=== PATIENT | female | born 1955 | race Hispanic/Latino ===

== ENCOUNTER 2023-06-10 11:40 | Observation (INO) | payer OTHER ==
[2023-06-08 14:22] VITALS: BP 202/72; PULSE 60; RESP 17
[2023-06-08 14:22] LABS: BASOPHILS # (AUTO) 0.01 K/uL (0.00-0.20); BASOPHILS % (AUTO) 0.1 % (0.0-5.0); EOSINOPHILS # (AUTO) 0.17 K/uL (0.00-0.70); EOSINOPHILS % (AUTO) 2.3 % (0.0-8.0); HEMATOCRIT 34.7 % (36-48); IMMATURE GRANULOCYTE ABSOLUTE 0.03 K/uL (0-1); LYMPHOCYTES # (AUTO) 2.3 K/uL (1.0-4.8); LYMPHOCYTES % (AUTO) 31.1 % (21.0-51.0); MEAN CORPUSCULAR HEMOGLOBIN 28.1 pg (27.0-33.0); MEAN CORPUSCULAR HGB CONC 32.3 g/dL (32.0-36.0); MONOCYTES # (AUTO) 0.4 K/uL (0.1-1.0); MONOCYTES % (AUTO) 5.9 % (3.0-13.0); NEUTROPHILS # (AUTO) 4.5 K/uL (1.8-7.7); NEUTROPHILS % (AUTO) 60.2 % (40.0-77.0); PLATELET COUNT (AUTO) 294 K/uL (130-400); RED BLOOD CELL COUNT(AUTO) 3.99 MIL/uL (4.00-5.50); RED CELL DISTRIBUTION WIDTH 14.1 % (11.0-15.5); WHITE BLOOD COUNT (AUTO) 7.5 K/uL (4.8-10.8)
[2023-06-08 14:25] LABS: APPEARANCE,URINE CLEAR (CLEAR); BILIRUBIN,URINE NEGATIVE (NEGATIVE); COLOR,URINE COLORLESS (YELLOW); GLUCOSE, URINE (UA) NEGATIVE (NEGATIVE); KETONES,URINE NEGATIVE (NEGATIVE); LEUKOCYTE ESTERASE ,URINE 25 Leu/uL (NEGATIVE); NITRATE,URINE NEGATIVE (NEGATIVE); OCCULT BLOOD,URINE NEGATIVE (NEGATIVE); PH,URINE 5.5 (5.0-8.0); PROTEIN,URINE NEGATIVE (NEGATIVE); UROBILINOGEN,URINE 0.2 mg/dL (0.2-1.0)
[2023-06-08 14:32] LABS: ADD UA MICROSCOPIC YES
[2023-06-08 14:40] LABS: RBC,URINE 0-1 /HPF (0-1); SQUAMOUS EPITHELIAL CELL,UR RARE /HPF (0-2)
[2023-06-08 14:41] LABS: INR 0.99 (0.85-1.15); PROTHROMBIN TIME 11.5 SEC (9.6-11.6)
[2023-06-08 14:43] LABS: PARTIAL THROMBOPLASTIN TIME 27.3 SEC (26.3-35.5)
[2023-06-08 14:48] LABS: CREATININE 0.8 mg/dL (0.5-1.5)
[2023-06-08 15:04] LABS: B-TYPE NATRIURETIC PEPTIDE 83 pg/mL (0-100)
[2023-06-10] VITALS (7 sets, daily range): BP systolic 119–179; BP diastolic 45–64; PULSE 58–62; RESP 12–18; O2SAT 99
[~2023-06-10] VITALS: Ht 165.1 cm; Wt 101.6 kg
[~2023-06-10 11:40] MED LIST: AEC81 PO; AMLO2.5T4 PO; CHOL400C9 PO; HYDR12.54 PO; ICOS1CAP PO; LEVO88CA4 PO; LOSA25TA41 PO; METF-444 PO; METO25TA6 PO; NITR0.4T50 SL; ROSU20TA73 PO
[2023-06-10] MEDS ORDERED: 0.9%NACL 1000ML 1,000 ML IV ONE (14:03)
[2023-06-10] MEDS ORDERED: AEC81 PO (14:18)
[2023-06-10] MEDS ORDERED: LIDOCAINE HCL 1% 20 ML VIAL ONE (16:12)
[2023-06-10] MEDS ORDERED: FENTANYL CITRATE PF 50 MCG/1 ML 2ML VIAL ONE (16:12)
[2023-06-10] MEDS ORDERED: HEPARIN 10,000 UNIT/10ML (1,000 UNIT/ML) VIAL ONE (16:13)
[2023-06-10] MEDS ORDERED: MIDAZOLAM HCL 1 MG/ML 2ML VIAL ONE (16:13)
[2023-06-10] MEDS ORDERED: IOHEXOL 350 MG/ML 100ML INFUS..BTL IV ONE ×2 (16:13→18:28)
[2023-06-10] MEDS ORDERED: LABETALOL 20MG SYG IV ONE ×2 (18:08→18:51)
[2023-06-10] MEDS ORDERED: TICAGRELOR 90 MG TABLET ONE (18:43)
[2023-06-10] MEDS ORDERED: ASPIRIN 325MG EC TAB PO ONE (18:43)
[2023-06-10] MEDS ORDERED: TICA90TA PO (19:09)
[2023-06-10] MEDS ORDERED: CHOL400C9 PO (19:09)
[2023-06-10] MEDS ORDERED: ICOS1CAP PO (19:09)
[2023-06-10] MEDS ORDERED: NITROGLYCERIN 0.4 MG SL TAB SL PRN (19:30)
[2023-06-10] MEDS ORDERED: 0.9%NACL 1000ML 1,000 ML IV SCH (19:30)
[2023-06-10] MEDS: TICAGRELOR 90 MG TABLET PO SCH (21:00)
[2023-06-10] MEDS: ICOSAPENT ETHYL 2 GM PO SCH (21:00)
[2023-06-10] MEDS ORDERED: ATORVASTATIN 40 MG TABLET PO SCH (21:00)
[2023-06-10] MEDS: METOPROLOL TARTRATE 25 MG TAB PO SCH (21:37)
[2023-06-11 03:28] VITALS: BP 139/67; PULSE 58; RESP 18
[2023-06-11 04:08] LABS: HEMATOCRIT 30.9 % (36-48); MEAN CORPUSCULAR HEMOGLOBIN 27.7 pg (27.0-33.0); MEAN CORPUSCULAR VOLUME 86.3 fL (79-99); RED BLOOD CELL COUNT(AUTO) 3.58 MIL/uL (4.00-5.50); RED CELL DISTRIBUTION WIDTH 14.2 % (11.0-15.5); WHITE BLOOD COUNT (AUTO) 7.5 K/uL (4.8-10.8)
[2023-06-11 04:25] LABS: CREATININE 0.7 mg/dL (0.5-1.5); POTASSIUM 3.9 mmol/L (3.5-5.1)
[2023-06-11] MEDS ORDERED: LEVOTHYROXINE 88 MCG TABLET PO SCH (06:30)
[2023-06-11 08:00] VITALS: O2SAT 98
[2023-06-11 08:15] VITALS: BP 134/56; PULSE 56; RESP 16
[2023-06-11] MEDS: METOPROLOL TARTRATE 25 MG TAB PO SCH (09:00)
[2023-06-11] MEDS ORDERED: LOSARTAN 25 MG TABLET PO SCH (09:00)
[2023-06-11] MEDS ORDERED: CHOLECALCIFEROL 10 MCG PO SCH (09:00)
[2023-06-11] MEDS ORDERED: AMLODIPINE 2.5 MG TAB PO SCH (09:00)
[2023-06-11] MEDS ORDERED: HYDROCHLOROTHIAZIDE 25 MG TABLET PO SCH (09:00)
[2023-06-11] MEDS ORDERED: ASPIRIN 81MG CHEW TAB PO SCH (09:00)
[2023-06-11] MEDS: TICAGRELOR 90 MG TABLET PO SCH (10:12)
[2023-06-11] MEDS: ICOSAPENT ETHYL 2 GM PO SCH (10:24)
[2023-06-12] MEDS ORDERED: ASPIRIN 81 MG EC TAB PO SCH (09:00)
== END 2023-06-11 12:03 | disposition home or self-care (01) ==
LOC: DAH 11:40 → DAHIP 11:41 → 2AH 21:14
PROVIDERS: ADMIT Internal Medicine Cardiovascular Disease; ATTEND Internal Medicine Cardiovascular Disease
DX: I20.9 Angina pectoris, unspecified (principal)
CPT/HCPCS: 80048 ×2; 83880; 85025; 85610; 85730; 81001; 36415 ×2; 71045; 93005 ×2; 93459; 82948 ×2; 83735; 80061; 85027; C1769 ×2; C1894 ×2; C1874; C1887; C1760; Q9965 ×3; G0378 ×17; J3010; J7030; J1644 ×2; J2250; Q9967 ×2; A4215; A4223 ×3; A4222; A4221; A4663; A4216; A4606; C9604; 99156; 99157